=== PATIENT | male | born 1940 | race Caucasian/White ===

== ENCOUNTER 2016-09-17 22:58 | Emergency (ER) | payer MEDICARE, MEDICAID ==
[~2016-09-17 22:58] MED LIST: ACET325 PO; ALBU6.7H INH; AMLO5TAB22 PO; ASPI81 PO; ATOR20TA42 PO; CIAL20TA PO; CLON.1 PO; CO Q100C9 PO; COZA50TA PO; DONE10TA14 PO; LORT7.5T3 PO; METF-324 PO; METH750T2 PO; NEUR600T PO; NIAC1TAB PO; OXYB10TA PO; RANI150 PO; REQU3TAB PO; RISP1 PO; TAMS0.4C67 PO; VITA-13 PO
[2016-09-17 23:07] VITALS: BP 146/79; PULSE 82; RESP 18; TEMP 98.5; O2SAT 100
--- NOTE | 2016-09-17 23:28 | PD ---
HPI Chief Complaint: Headache Time Seen by Provider: 23:06 Travel History International Travel<30 days: No Contact w/Intl Traveler<30days: No Traveled to known affect area: No History of Present Illness HPI The patient is a 76-year-old male who presents to the emergency department via EMS for headache and jaw pain. The patient states his symptoms started earlier tonight, states he is wearing his upper dentures, not his lower dentures, and he keeps biting down on his lower jaw which is causing pain over the lower mandibular area. He also complains of a generalized headache that started earlier today without any nausea or vomiting. 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 He denies any acute focal deficits, follows commands, but is a somewhat poor limited historian. He denies any chest pain, shortness breath, nausea, vomiting, or abdominal pain. PFSH Past Medical History Arthritis: Yes Asthma: No Atrial Fibrillation: Yes Autoimmune Disease: No Blood Disorders: No Anxiety: Yes Depression: Yes Heart Rhythm Problems: Yes Cancer: No Cardiac Catheterization: Yes (BYPASS REPAIR TO VALVE) Cardiovascular Problems: Yes (CAD) High Cholesterol: Yes Chemotherapy: No Chest Pain: No Congestive Heart Failure: Yes COPD: Yes Cerebrovascular Accident: Yes Coronary Artery Disease: Yes Dementia: Yes Diabetes: Yes Patient Takes Glucophage: Yes Diminished Hearing: No Endocrine: Yes Gastrointestinal Disorders: Yes (CONSTIPATION) GERD: No Glaucoma: No Genitourinary: No Headaches: Yes Hepatitis: No Hiatal Hernia: No Hypertension: Yes Immune Disorder: No Implanted Vascular Access Dvce: Yes Kidney Stones: No Musculoskeletal: Yes Neurologic: Yes (PERDOMO'S PALSY) Parkinson's Disease: Yes Psychiatric: Yes Reproductive: No Respiratory: Yes (PULMONARY EDEMA) Migraines: No Myocardial Infarction: No Radiation Therapy: No Renal Failure: No Seizures: No Sickle Cell Disease: No Sleep Apnea: Yes (DYSPNEA) Thyroid Disease: No Ulcer: No Tetanus Vaccination: Unknown Influenza Vaccination: Yes Past Surgical History Abdominal Surgery: No AICD: No Appendectomy: No Arteriovenous Shunt: No Body Medical Devices: PIG'S VALVE Cardiac Surgery: Yes (BYPASS, AORTIC VALVE, REVISION) Cholecystectomy: No Coronary Artery Bypass Graft: Yes (1984, 2009) Ear Surgery: No Endocrine Surgery: No Eye Surgery: No Genitourinary Surgery: No Gynecologic Surgery: No Insulin Pump: No Joint Replacement: No Oral Surgery: No Pacemaker: No Thoracic Surgery: No Valve Replacement: Yes (aortic valve and a revision) Other Surgery: Yes Social History Alcohol Use: No Tobacco Use: No Substance Use: No Allergies-Medications (Allergen,Severity, Reaction): Coded Allergies: Nitroglycerin (Verified Adverse Reaction, Intermediate, Hypotension, ) Reported Meds & Prescriptions Reported Meds & Active Scripts Active Reported Aspirin 81 (Aspirin) 81 Mg Tabdr 81 Mg PO DAILY Hydrochlorothiazide 12.5 Mg Cap 12.5 Mg PO DAILY Tamsulosin (Tamsulosin HCl) 0.4 Mg Cap 0.4 Mg PO HS Miralax Powder (Polyethylene Glycol 3350 Powder) 17 Gm Powd 17 Gm PO DAILY Mix and dissolve one measuring cap-ful (17 grams) in water or juice. Ranitidine (Ranitidine HCl) 150 Mg Tab 150 Mg PO DAILY Requip (Ropinirole) 3 Mg Tab 3 Mg PO HS Namenda (Memantine) 10 Mg Tab 10 Mg PO DAILY Losartan (Losartan Potassium) 100 Mg Tab 100 Mg PO DAILY Niacin (Niacinamide) 500 Mg Tablet 500 Mg PO Donepezil 10 Mg Tab 10 Mg PO HS Atorvastatin (Atorvastatin Calcium) 20 Mg Tab 20 Mg PO HS Clonidine (Clonidine HCl) 0.3 Mg Tab 0.3 Mg PO DAILY Amlodipine (Amlodipine Besylate) 5 Mg Tab 5 Mg PO DAILY Diabetic Tussin Dm Liquid (Guaifenesin/Dextromethorphan) 118 Ml Liquid Unknown Dose Colace (Docusate Sodium) 100 Mg Capsule 100 Mg PO DAILY Tylenol Extra Strength (Acetaminophen) 500 Mg Tablet 500 Mg PO Baclofen 10 Mg Tab 10 Mg PO Q8HR PRN Trazodone (Trazodone HCl) 50 Mg Tab 50 Mg PO HS Omeprazole 20 Mg Tab 20 Mg PO DAILY Metformin (Metformin HCl) 850 Mg Tab 850 Mg PO DAILY With a meal Risperidone 1 Mg Tab 1 Mg PO DAILY Myrbetriq (Mirabegron) 50 Mg Tab 50 Mg PO DAILY Neurontin (Gabapentin) 300 Mg Cap 300 Mg PO BID Lantus Solostar Pen Inj (Insulin Glargine) 300 Unit/3 Ml Pen Unknown Dose SQ Robaxin (Methocarbamol) 750 Mg Tab 1,500 Mg PO TID Review of Systems Except as stated in HPI: all other systems reviewed are Neg General / Constitutional: No: Fever HENT: Positive: Headaches, Other Cardiovascular: No: Chest Pain or Discomfort Respiratory: No: Shortness of Breath Gastrointestinal: No: Nausea, Vomiting, Abdominal Pain Neurologic: Positive: Headache, No: Focal Abnormalities Physical Exam Narrative GENERAL: Awake, alert, pleasant 76-year-old male who appears his stated age and is in no acute respiratory distress. SKIN: Focused skin assessment warm/dry. HEAD: Atraumatic. Normocephalic. EYES: Pupils equal and round. Pupils are 4 mm bilateral and reactive. ENT: No nasal bleeding or discharge. Upper dentures in place. No visible lower teeth. No tenderness of the mandible or TMJ. NECK: Trachea midline. No JVD. CARDIOVASCULAR: Regular rate and rhythm. No murmur appreciated. RESPIRATORY: No accessory muscle use. Clear to auscultation. Breath sounds equal bilaterally. GASTROINTESTINAL: Abdomen soft, non-tender, nondistended. No rebound tenderness. MUSCULOSKELETAL: No obvious deformities. No clubbing. No cyanosis. No edema. NEUROLOGICAL: Awake and alert. Patient is oriented to person and place. Did not know the current month. Minimal asymmetry to the left aspect of the face with smiling. Mild weakness the left upper extremity. Follows commands without difficulty. PSYCHIATRIC: Appropriate mood and affect; insight and judgment normal. Data Data Last Documented VS Vital Signs Date Time Temp Pulse Resp B/P Pulse Ox O2 Delivery O2 Flow Rate FiO2 09/17/16 23:07 98.5 82 18 146/[address] Brain W/O Iv Contrast(Rout) (09/17/16 ) Complete Blood Count With Diff (09/17/16 23:16) Comprehensive Metabolic Panel (09/17/16 23:16) Urinalysis - C+S If Indicated (09/17/16 23:16) Morphine Inj (Morphine Inj) (09/17/16 23:30) Ondansetron Inj (Zofran Inj) (09/17/16 23:30) Labs Laboratory Tests Test 09/17/16 09/17/16 23:25 23:30 White Blood Count 6.9 TH/MM3 Red Blood Count 4.05 MIL/MM3 Hemoglobin 12.7 GM/DL Hematocrit 37.5 % Mean Corpuscular Volume 92.6 FL Mean Corpuscular Hemoglobin 31.5 PG Mean Corpuscular Hemoglobin 34.0 % Concent Red Cell Distribution Width 13.1 % Platelet Count 212 TH/MM3 Mean Platelet Volume 8.7 FL Neutrophils (%) (Auto) 69.1 % Lymphocytes (%) (Auto) 17.1 % Monocytes (%) (Auto) 9.5 % Eosinophils (%) (Auto) 1.0 % Basophils (%) (Auto) 3.3 % Neutrophils # (Auto) 4.7 TH/MM3 Lymphocytes # (Auto) 1.2 TH/MM3 Monocytes # (Auto) 0.7 TH/MM3 Eosinophils # (Auto) 0.1 TH/MM3 Basophils # (Auto) 0.2 TH/MM3 CBC Comment DIFF FINAL Differential Comment Sodium Level 137 MEQ/L Potassium Level 3.8 MEQ/L Chloride Level 102 MEQ/L Carbon Dioxide Level 26.0 MEQ/L Anion Gap 9 MEQ/L Blood Urea Nitrogen 14 MG/DL Creatinine 0.94 MG/DL Estimat Glomerular Filtration 78 ML/MIN Rate Random Glucose 219 MG/DL Calcium Level 9.2 MG/DL Total Bilirubin 0.4 MG/DL Aspartate Amino Transf 12 U/L (AST/SGOT) Alanine Aminotransferase 18 U/L (ALT/SGPT) Alkaline Phosphatase 104 U/L Total Protein 6.9 GM/DL Albumin 3.7 GM/DL Urine Color LIGHT-YELLOW Urine Turbidity CLEAR Urine pH 6.0 Urine Specific [place] 1.006 Urine Protein NEG mg/dL Urine Glucose (UA) 150 mg/dL Urine Ketones TRACE mg/dL Urine Occult Blood NEG Urine Nitrite NEG Urine Bilirubin NEG Urine Urobilinogen LESS THAN 2.0 MG/DL Urine Leukocyte Esterase NEG Urine RBC LESS THAN 1 /hpf Urine WBC 1 /hpf Microscopic Urinalysis Comment CULT NOT INDICATED MDM Medical Decision Making Medical Screen Exam Complete: Yes Emergency Medical Condition: Yes Medical Record Reviewed: Yes Interpretation(s) Last Impressions Head CT 09/17/16 0000 Signed Impressions: Service Date/Time: Saturday, September 17, 2016 23:34 - CONCLUSION: No acute intracranial findings. Valerio Elena MD Laboratory Tests Test 09/17/16 09/17/16 23:25 23:30 White Blood Count 6.9 TH/MM3 Red Blood Count 4.05 MIL/MM3 Hemoglobin 12.7 GM/DL Hematocrit 37.5 % Mean Corpuscular Volume 92.6 FL Mean Corpuscular Hemoglobin 31.5 PG Mean Corpuscular Hemoglobin 34.0 % Concent Red Cell Distribution Width 13.1 % Platelet Count 212 TH/MM3 Mean Platelet Volume 8.7 FL Neutrophils (%) (Auto) 69.1 % Lymphocytes (%) (Auto) 17.1 % Monocytes (%) (Auto) 9.5 % Eosinophils (%) (Auto) 1.0 % Basophils (%) (Auto) 3.3 % Neutrophils # (Auto) 4.7 TH/MM3 Lymphocytes # (Auto) 1.2 TH/MM3 Monocytes # (Auto) 0.7 TH/MM3 Eosinophils # (Auto) 0.1 TH/MM3 Basophils # (Auto) 0.2 TH/MM3 CBC Comment DIFF FINAL Differential Comment Sodium Level 137 MEQ/L Potassium Level 3.8 MEQ/L Chloride Level 102 MEQ/L Carbon Dioxide Level 26.0 MEQ/L Anion Gap 9 MEQ/L Blood Urea Nitrogen 14 MG/DL Creatinine 0.94 MG/DL Estimat Glomerular Filtration 78 ML/MIN Rate Random Glucose 219 MG/DL Calcium Level 9.2 MG/DL Total Bilirubin 0.4 MG/DL Aspartate Amino Transf 12 U/L (AST/SGOT) Alanine Aminotransferase 18 U/L (ALT/SGPT) Alkaline Phosphatase 104 U/L Total Protein 6.9 GM/DL Albumin 3.7 GM/DL Urine Color LIGHT-YELLOW Urine Turbidity CLEAR Urine pH 6.0 Urine Specific [place] 1.006 Urine Protein NEG mg/dL Urine Glucose (UA) 150 mg/dL Urine Ketones TRACE mg/dL Urine Occult Blood NEG Urine Nitrite NEG Urine Bilirubin NEG Urine Urobilinogen LESS THAN 2.0 MG/DL Urine Leukocyte Esterase NEG Urine RBC LESS THAN 1 /hpf Urine WBC 1 /hpf Microscopic Urinalysis Comment CULT NOT INDICATED Differential Diagnosis Differential diagnosis includes intracranial hemorrhage, tension headache, cluster headache, migraine, CVA, hyponatremia, TMJ. Narrative Course IV was established, labs are drawn and sent, and the patient was placed on cardiac telemetry monitoring and continuous pulse oximetry monitoring. 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 CT of the brain was obtained. CT reveals old strokes, no acute findings. Laboratory evaluation reveals mild hyperglycemia. The patient's headache has improved. The patient stable for [facility] back to the [facility]. Diagnosis Primary Impression: Cephalgia Qualified Code: R51 - Acute nonintractable headache, unspecified headache type Additional Impression: Jaw pain Condition: Stable Juan Francisco MD Sep 17, 2016 23:28
[2016-09-17] MEDS ORDERED: MORPHINE SULFATE 4 MG/ML INJ IV PUSH ONE (23:30)
[2016-09-17] MEDS ORDERED: ONDANSETRON HCL 4 MG/2 ML VIAL IV PUSH ONE (23:30)
[2016-09-17 23:42] LABS: BLOOD, URINE NEG (NEG); GLUCOSE,URINE 150 mg/dL (NEG); KETONE, URINE TRACE mg/dL (NEG); NITRITE,URINE NEG (NEG); URINE COLOR LIGHT-YELLOW (YELLW/STRAW)
[2016-09-17 23:42] LABS: AUTOMATED NEUTROPHIL # 4.7 TH/MM3 (1.8-7.7); BASOPHIL # 0.2 TH/MM3 (0-0.2); BASOPHIL % 3.3 % (0.0-2.0); EOSINOPHIL # 0.1 TH/MM3 (0-0.4); HEMATOCRIT 37.5 % (39.0-51.0); HEMO FLAGS DIFF FINAL; LYMPH % 17.1 % (9.0-44.0); LYMPHOCYTE # 1.2 TH/MM3 (1.0-4.8); MEAN CELL VOLUME 92.6 FL (80.0-100.0); MEAN CORPUSCULAR HEMOGLOBIN 31.5 PG (27.0-34.0); MONO % 9.5 % (0.0-8.0); NEUT % 69.1 % (16.0-70.0); PLATELET COUNT 212 TH/MM3 (150-450); RED BLOOD COUNT 4.05 MIL/MM3 (4.50-5.90); RED CELL DISTRIBUTION WIDTH 13.1 % (11.6-17.2); WHITE BLOOD COUNT 6.9 TH/MM3 (4.0-11.0)
--- NOTE | 2016-09-17 23:46 | RADRPT ---
EXAM DATE/TIME: 09/17/2016 23:34 [facility] COMPARISON: No previous studies available for comparison. INDICATIONS : Cephalgia. RADIATION DOSE: 41.29 CTDIvol (mGy) MEDICAL HISTORY : Chronic obstructive pulmonary disease. Parkinsons. Cardiovascular diseaseMyocardial infarction. Conge stive heart failure. Diabetes. CVA. SURGICAL HISTORY : CABG Aortic valve. ENCOUNTER: Initial ACUITY: 1 day PAIN SCALE: 8/10 LOCATION: cranial TECHNIQUE: Multiple contiguous axial images were obtained of the head. Using automated exposure control and adj ustment of the mA and/or kV according to patient size, radiation dose was kept as low as reasonably a chievable to obtain optimal diagnostic quality images. DICOM format image data is available electro nically for review and comparison. FINDINGS: There is an old right basal ganglia lacunar infarct present. Slight adjacent ex vacuo expansion of th e frontal horn of right lateral ventricle. Patchy moderate diminished attenuation in periventricular and subcortical white matter is likely microvascular ischemic in etiology. There is no evidence of in tracranial hemorrhage or mass. Nothing to suggest acute infarction. The extracranial structures are b enign and intact. CONCLUSION: No acute intracranial findings. Valerio Elena MD on September 17, 2016 at 23:42 Board Certified Radiologist. This report was verified electronically.
[2016-09-17 23:47] LABS: COMMENT (UR) CULT NOT INDICATED; CULTURE IF INDICATED CULT NOT INDICATED
[2016-09-17 23:57] LABS: ALT (GPT) 18 U/L (12-78); ANION GAP 9 MEQ/L (5-15); AST (GOT) 12 U/L (15-37); BLOOD UREA NITROGEN 14 MG/DL (7-18); CHLORIDE 102 MEQ/L (98-107); GLOMERULAR FILTRATION RATE 78 ML/MIN (>89); POTASSIUM 3.8 MEQ/L (3.5-5.1); SODIUM (NA) 137 MEQ/L (136-145)
[2016-09-17] MEDS ORDERED: HYDR12.57 PO (23:59)
[2016-09-17] MEDS ORDERED: OMEP20TA PO (23:59)
[2016-09-17] MEDS ORDERED: ROBA750T PO (23:59)
[2016-09-17] MEDS ORDERED: TAMS0.4C4 PO (23:59)
[2016-09-17] MEDS ORDERED: NIAC500T67 PO (23:59)
[2016-09-17] MEDS ORDERED: LANTINJ SQ (23:59)
[2016-09-17] MEDS ORDERED: CLON0.3T PO (23:59)
[2016-09-17] MEDS ORDERED: ACET-822 PO (23:59)
[2016-09-17] MEDS ORDERED: ASPI-110 PO (23:59)
[2016-09-17] MEDS ORDERED: TRAZ50TA12 PO (23:59)
[2016-09-17] MEDS ORDERED: RISP1TAB2 PO (23:59)
[2016-09-17] MEDS ORDERED: METF850T PO (23:59)
[2016-09-17] MEDS ORDERED: DONE10TA7 PO (23:59)
[2016-09-17] MEDS ORDERED: AMLO5TAB2 PO (23:59)
[2016-09-17] MEDS ORDERED: MIRA50TA PO (23:59)
[2016-09-17] MEDS ORDERED: COLA100C PO (23:59)
[2016-09-17] MEDS ORDERED: MIRA3350 PO (23:59)
[2016-09-17] MEDS ORDERED: NAME10TA PO (23:59)
[2016-09-17] MEDS ORDERED: NEUR300C PO (23:59)
[2016-09-17] MEDS ORDERED: ATOR20TA15 PO (23:59)
[2016-09-17] MEDS ORDERED: REQU3TAB PO (23:59)
[2016-09-17] MEDS ORDERED: LOSA100T PO (23:59)
[2016-09-17] MEDS ORDERED: [UNRECOGNIZED DRUG - CODE] (23:59)
[2016-09-17] MEDS ORDERED: BACL10TA PO (23:59)
[2016-09-17] MEDS ORDERED: RANI150T PO (23:59)
[2016-09-18] LABS: ALKALINE PHOSPHATASE 104 U/L (45-117); TOTAL BILIRUBIN ADULT 0.4 MG/DL (0.2-1.0)
[2016-09-18] MEDS ORDERED: NORC5TAB PO (00:36)
== END 2016-09-18 00:54 ==
LOC: NEPC 22:58
DX: R51 Headache (principal); R68.84 Jaw pain; E11.65 Type 2 diabetes mellitus with hyperglycemia; I69.998 Other sequelae following unspecified cerebrovascular disease; I10 Essential (primary) hypertension; I50.9 Heart failure, unspecified; F03.90 Unspecified dementia, unspecified severity, without behavioral disturbance, psychotic disturbance, mood disturbance, and anxiety; G20 Parkinson's disease; J44.9 Chronic obstructive pulmonary disease, unspecified
CPT/HCPCS: 70450; 80053; 81001; 85025; 96374; 96375; 99285; J2270; J2405

== ENCOUNTER 2016-09-23 04:28 | Emergency (ER) | payer MEDICARE, MEDICAID ==
[~2016-09-23] VITALS: Ht 182.9 cm; Wt 104.5 kg
[~2016-09-23 04:28] MED LIST changes: +ACET-822 PO; -ACET325 PO; -ALBU6.7H INH; +AMLO5TAB2 PO; -AMLO5TAB22 PO; +ASPI-110 PO; -ASPI81 PO; +ATOR20TA15 PO; -ATOR20TA42 PO; +BACL10TA PO; -CIAL20TA PO; -CLON.1 PO; +CLON0.3T PO; -CO Q100C9 PO; +COLA100C PO; -COZA50TA PO; -DONE10TA14 PO; +DONE10TA7 PO; +HYDR12.57 PO; +LANTINJ SQ; -LORT7.5T3 PO; +LOSA100T PO; -METF-324 PO; +METF850T PO; -METH750T2 PO; +MIRA3350 PO; +MIRA50TA PO; +NAME10TA PO; +NEUR300C PO; -NEUR600T PO; -NIAC1TAB PO; +NIAC500T67 PO; +NORC5TAB PO; +OMEP20TA PO; -OXYB10TA PO; -RANI150 PO; +RANI150T PO; -RISP1 PO; +RISP1TAB2 PO; +ROBA750T PO; +TAMS0.4C4 PO; -TAMS0.4C67 PO; +TRAZ50TA12 PO; -VITA-13 PO; +[UNRECOGNIZED DRUG - CODE]
[2016-09-23 04:32] VITALS: BP 154/68; PULSE 88; RESP 16; TEMP 98.4; O2SAT 96
--- NOTE | 2016-09-23 05:34 | PD ---
HPI Chief Complaint: Pain: Acute or Chronic Time Seen by Provider: 05:26 Travel History International Travel<30 days: No Contact w/Intl Traveler<30days: No Traveled to known affect area: No History of Present Illness HPI 76-year-old white male presents to emergency department with complains of his splint being too tight. Is complaining of pain in his left foot. The patient states that he had a fracture of his left ankle earlier this past week and was seen at [facility]. A splint was placed. The patient denies any sensory loss. Patient states the pain is moderate to severe. No alleviating factors. PFSH Past Medical History Arthritis: Yes Asthma: No Atrial Fibrillation: Yes Autoimmune Disease: No Blood Disorders: No Anxiety: Yes Depression: Yes Heart Rhythm Problems: Yes Cancer: No Cardiac Catheterization: Yes (BYPASS REPAIR TO VALVE) Cardiovascular Problems: Yes (CAD) High Cholesterol: Yes Chemotherapy: No Chest Pain: No Congestive Heart Failure: Yes COPD: Yes Cerebrovascular Accident: Yes Coronary Artery Disease: Yes Dementia: Yes Diabetes: Yes Diminished Hearing: No Endocrine: Yes Gastrointestinal Disorders: Yes (CONSTIPATION) GERD: No Glaucoma: No Genitourinary: No Headaches: Yes Hepatitis: No Hiatal Hernia: No Hypertension: Yes Immune Disorder: No Implanted Vascular Access Dvce: Yes Kidney Stones: No Musculoskeletal: Yes Neurologic: Yes (PERDOMO'S PALSY) Parkinson's Disease: Yes Psychiatric: Yes Reproductive: No Respiratory: Yes (PULMONARY EDEMA) Migraines: No Myocardial Infarction: No Radiation Therapy: No Renal Failure: No Seizures: No Sickle Cell Disease: No Sleep Apnea: Yes (DYSPNEA) Thyroid Disease: No Ulcer: No Past Surgical History Abdominal Surgery: No AICD: No Appendectomy: No Arteriovenous Shunt: No Body Medical Devices: PIG'S VALVE Cardiac Surgery: Yes (BYPASS, AORTIC VALVE, REVISION) Cholecystectomy: No Coronary Artery Bypass Graft: Yes (1984, 2009) Ear Surgery: No Endocrine Surgery: No Eye Surgery: No Genitourinary Surgery: No Gynecologic Surgery: No Insulin Pump: No Joint Replacement: No Oral Surgery: No Pacemaker: No Thoracic Surgery: No Valve Replacement: Yes (aortic valve and a revision) Other Surgery: Yes Social History Alcohol Use: No Tobacco Use: No Substance Use: No Allergies-Medications (Allergen,Severity, Reaction): Coded Allergies: Nitroglycerin (Verified Adverse Reaction, Intermediate, Hypotension, ) Reported Meds & Prescriptions Reported Meds & Active Scripts Active [place] (Hydrocodone-Acetaminophen) 5-325 mg Tab 1 Tab PO Q6H PRN Reported Aspirin 81 (Aspirin) 81 Mg Tabdr 81 Mg PO DAILY Hydrochlorothiazide 12.5 Mg Cap 12.5 Mg PO DAILY Tamsulosin (Tamsulosin HCl) 0.4 Mg Cap 0.4 Mg PO HS Miralax Powder (Polyethylene Glycol 3350 Powder) 17 Gm Powd 17 Gm PO DAILY Mix and dissolve one measuring cap-ful (17 grams) in water or juice. Ranitidine (Ranitidine HCl) 150 Mg Tab 150 Mg PO DAILY Requip (Ropinirole) 3 Mg Tab 3 Mg PO HS Namenda (Memantine) 10 Mg Tab 10 Mg PO DAILY Losartan (Losartan Potassium) 100 Mg Tab 100 Mg PO DAILY Niacin (Niacinamide) 500 Mg Tablet 500 Mg PO Donepezil 10 Mg Tab 10 Mg PO HS Atorvastatin (Atorvastatin Calcium) 20 Mg Tab 20 Mg PO HS Clonidine (Clonidine HCl) 0.3 Mg Tab 0.3 Mg PO DAILY Amlodipine (Amlodipine Besylate) 5 Mg Tab 5 Mg PO DAILY Diabetic Tussin Dm Liquid (Guaifenesin/Dextromethorphan) 118 Ml Liquid Unknown Dose Colace (Docusate Sodium) 100 Mg Capsule 100 Mg PO DAILY Tylenol Extra Strength (Acetaminophen) 500 Mg Tablet 500 Mg PO Baclofen 10 Mg Tab 10 Mg PO Q8HR PRN Trazodone (Trazodone HCl) 50 Mg Tab 50 Mg PO HS Omeprazole 20 Mg Tab 20 Mg PO DAILY Metformin (Metformin HCl) 850 Mg Tab 850 Mg PO DAILY With a meal Risperidone 1 Mg Tab 1 Mg PO DAILY Myrbetriq (Mirabegron) 50 Mg Tab 50 Mg PO DAILY Neurontin (Gabapentin) 300 Mg Cap 300 Mg PO BID Lantus Solostar Pen Inj (Insulin Glargine) 300 Unit/3 Ml Pen Unknown Dose SQ Robaxin (Methocarbamol) 750 Mg Tab 1,500 Mg PO TID Review of Systems ROS Limitations: Poor Historian Except as stated in HPI: all other systems reviewed are Neg Physical Exam Narrative GENERAL: This is a well-nourished, well-developed patient, in no apparent distress. SKIN: No rashes, ecchymoses or lesions. Warm and dry. HEAD: Atraumatic. Normocephalic. EYES: PERRL, EOMI, no discharge or injection. No scleral icterus. EARS: Clear NOSE: Nasal turbinates appear normal. THROAT: Mucosa pink and moist. Airway patent. NECK: Trachea midline. supple, moves head freely. LUNGS: Clear to auscultation. CV: Regular in rhythm. ABDOMEN: Soft nontender. EXT: No clubbing cyanosis or edema. Patient has a posterior sugar tong splint on his left lower leg. He has intact sensation Refill and his exposed toes. Data Data Last Documented VS Vital Signs Date Time Temp Pulse Resp B/P Pulse Ox O2 Delivery O2 Flow Rate FiO2 09/23/16 04:32 98.4 88 16 154/68 96 Orders Splint Or Brace Apply/Monitor (09/23/16 04:45) [facility] Medical Decision Making Medical Screen Exam Complete: Yes Emergency Medical Condition: Yes Medical Record Reviewed: Yes Differential Diagnosis Differential diagnosis: Constricting splint, neuropathy, post fracture pain Narrative Course The patient's splint has been removed. He has a developing pressure sore to the anterior aspect of the ankle and lower leg. This area measures approximately 5 x 8 cm. It is red but blanches. There is no skin breakdown. Patient has intact gross sensation. He has intact dorsalis pedis pulse. Patient states that he has significant improvement of his pain after removal of the splint. The patient is able to rest with his leg up after splint removal. A new posterior sugar tong splint is applied with a large amount of bulky padding. Diagnosis Primary Impression: constricting splint left lower leg Patient Instructions: General Instructions Additional Instructions: Rest. Elevation above the heart at all times. Follow-up with your doctor on Saturday. Return to the ER for any problems. Med/Other Pt SpecificInfo: No Meds Exist/No RX given Disposition: DISCHARGE HOME Condition: Stable Maxi Ordaz Sep 23, 2016 05:34
== END 2016-09-23 07:09 | disposition home or self-care (01) ==
LOC: NEPD 04:28
DX: M79.672 Pain in left foot (principal)
CPT/HCPCS: 29515